=== PATIENT | male | born 1955 | race Caucasian/White ===

== ENCOUNTER → 2016-06-03 | Outpatient (CLI) | payer OTHER ==
[~2016-06-03] MED LIST: IOPAMIDOL (ISOVUE 370) 100 ML BTL IV ONE; IOPAMIDOL (ISOVUE-370) 150 ML BTL IV ONE
== END ==
LOC: CIMAGING 13:21
PROVIDERS: ATTEND Radiology Diagnostic Radiology
DX: Z09 Encounter for follow-up examination after completed treatment for conditions other than malignant neoplasm (principal); I70.1 Atherosclerosis of renal artery; I10 Essential (primary) hypertension
CPT/HCPCS: 75635-PO; Q9967

== ENCOUNTER 2016-06-09 11:01 | Inpatient (IN) | payer OTHER ==
--- NOTE | 2016-06-09 11:21 | CPEKG ---
Heart Rate: 64 RR Interval: 938 P-R Interval: 196 QRSD Interval: 120 QT Interval: 428 QTC Interval: 442 P Allen: 64 QRS Allen: -80 T Wave Allen: 34 EKG Severity - ABNORMAL ECG - EKG Impression: SINUS RHYTHM EKG Impression: NONSPECIFIC IVCD WITH LAD Electronically Signed By: Sejal Rea 09-Jun-2016 15:41:35
[2016-06-09 11:40] LABS: % IMMATURE GRANULYOCYTES 0.3 % (0.0-1.1); ABSOLUTE IMMATURE GRANULOCYTES 0.02 10^3/uL (0.00-0.10); ADD DIFF? NO; ADD MORPH? NO; ADD SCAN? NO; ATYPICAL LYMPHOCYTE FLAG 10 (0-99); FRAGMENT RBC FLAG 0 (0-99); HEMATOCRIT 48.4 % (40.0-51.0); HEMOGLOBIN 17.5 g/dL (13.7-17.5); LEFT SHIFT FLG 0 (0-99); LIPEMIA HEMOLYSIS FLAG 90 (0-99); MEAN CELL HEMOGLOBIN 31.9 pg (27.9-34.1); MEAN CELL HEMOGLOBIN CONCENTR. 36.2 g/dL (32.4-36.7); MEAN CELL VOLUME 88.3 fL (81.5-99.8); MEAN PLATELET VOLUME 10.6 fL (8.7-11.7); PLATELET CLUMPS FLAG 0 (0-99); PLATELET COUNT 127 10^3/uL (150-400); RED BLOOD CELL COUNT 5.48 10^6/uL (4.40-6.38)
[2016-06-09 11:50] LABS: ALANINE AMINOTRANSFERASE 43 IU/L (21-72); ALBUMIN 4.8 g/dL (3.5-5.0); ALKALINE PHOSPHATASE 79 IU/L (38-126); ANION GAP 14 mEq/L (8-16); ASPARTATE AMINOTRANSFERASE 26 IU/L (17-59); BILIRUBIN,TOTAL 0.7 mg/dL (0.1-1.4); BILIRUBIN-CONJUGATED 0.4 mg/dL (0.0-0.5); BILIRUBIN-UNCONJUGATED 0.3 mg/dL (0.0-1.1); CALCIUM 9.7 mg/dL (8.5-10.4); CARBON DIOXIDE 23 mEq/l (22-31); CHLORIDE 104 mEq/L (97-110); CREATININE 1.2 mg/dL (0.7-1.3); GLOMERULAR FILTRATION RATE > 60; GLUCOSE 83 mg/dL (70-100); POTASSIUM 4.2 mEq/L (3.5-5.2); SODIUM 141 mEq/L (134-144); TOTAL PROTEIN 7.5 g/dL (6.3-8.2)
[2016-06-09 12:00] LABS: INR 1.76 (0.83-1.16); PROTIME(PATIENT) 20.6 SEC (12.0-15.0)
[2016-06-09 12:01] LABS: APTT 36.3 SEC (23.0-38.0)
[2016-06-09 12:02] LABS: TROPONIN I < 0.012 ng/mL (0-0.034)
[2016-06-09] MEDS ORDERED: LABETALOL HCL 50 MG/10 ML SYR IVP ONE (12:11)
[2016-06-09] MEDS ORDERED: LABETALOL HCL 5 MG/ML 20 ML MDV ONE (12:18)
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
[2016-06-09] MEDS ORDERED: ACETAMINOPHEN 500 MG TAB ONE (12:29)
[2016-06-09] MEDS ORDERED: LABETALOL HCL 50 MG/10 ML SYR IVP PRN (14:53)
[2016-06-09] MEDS ORDERED: [UNRECOGNIZED DRUG - REMARK] MISC ONE (15:30)
[2016-06-09] MEDS: HYDROmorphONE/DILAUDID 1 MG/ML SYR IVP PRN ×3 (15:37→23:29)
[2016-06-09] MEDS ORDERED: ONDANSETRON 4 MG/2 ML VIAL IVP PRN (15:39)
[2016-06-09] MEDS ORDERED: NS 1,000 ML IV SCH (15:45)
[2016-06-09] MEDS ORDERED: ACETAMINOPHEN 500 MG TAB PO ONE (15:49)
[2016-06-09] MEDS: hydrALAZINE 10 MG TAB PO SCH ×2 (16:13→22:05)
[2016-06-09] MEDS: ACETAMINOPHEN 500 MG TAB PO PRN (16:14)
[2016-06-09] MEDS: ARGATROBAN 250 MG in NS 250 ML IV SCH (16:14)
--- NOTE | 2016-06-09 16:21 | GHP ---
[f rep st] HISTORY AND PHYSICAL DATE OF ADMISSION: 06/09/2016 CHIEF COMPLAINT: Headache. HISTORY OF PRESENT ILLNESS: The patient is a 60-year-old male who underwent an endovascular stent t o an abdominal aortic aneurysm in February. Immediately after the procedure, he developed new onset severe hypertension and recent CT angiogram showed that this endovascular stent has caused bilatera l renal artery stenosis. He did have plan for outpatient renal artery stents to be placed by Dr. Violet healy next week; however, in the meantime he has developed a severe headache and accelerated blood press ure, and he came to the emergency room. Blood pressure today was 200/125. His headache has been es calating over the last 3 days. Today it is very severe and constant, frontal, bilateral, behind his eyes, there is associated tinnitus. PAST MEDICAL HISTORY: 1. Abdominal aortic aneurysm with associated clot status post endovascular stent. 2. Recurrent left lower extremity critical limb ischemia due to clot originating at his AAA status post previous stent to the SFA and popliteal artery. 3. Lupus anticoagulant with recurrent PE and DVT. 4. HIT (heparin-induced thrombocytopenia). 5. Renal cell carcinoma status post ablation. 6. Bilateral renal artery stenosis as above. 7. Colon polyps for which repeat colonoscopy is due. MEDICATIONS: Please see computer record for full detailed list. ALLERGIES: 1. Penicillin. 2. Heparin. 3. Iodine contrast. SOCIAL HISTORY: Quit smoking 1 year ago. No alcohol for 2 years. He lives alone. 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 REVIEW OF SYSTEMS: Complete review of systems obtained. Review of systems is negative regarding co nstitutional, HEENT, GI, pulmonary, cardiovascular, , hematology, skin, muscular, endocrine, psych , except for positives as in HPI. FAMILY HISTORY: Father with liver cancer. Mother with ovarian cancer. PHYSICAL EXAMINATION: GENERAL: Well-developed, well-nourished male in no acute distress. VITAL SI GNS: Temperature is 36.6, pulse 64, blood pressure 167/90 satting 97% on room air. EYES: Normal conjunctivae. Pupils reactive to light. ENT: Normal ears and nose. Hearing intact. Normal lips and teeth. Oropharynx moist. NECK: Trachea midline. No thyromegaly. CHEST: Normal effort. JESUS GS: Clear to auscultation bilaterally. CARDIOVASCULAR: Regular rhythm. No murmur. EXTREMITIES: No lower extremity edema. ABDOMEN: Soft, nontender. No hepatosplenomegaly. SKIN: Warm, dry, in tact. No rash. MUSCULOSKELETAL: No cyanosis or clubbing. Strength 5/5 upper and lower extremitie s. NEUROLOGIC: Cranial nerves intact. Normal sensation to light touch. PSYCH: Awake, alert and oriented x3. Normal affect. Normal judgment and insight. Normal memory. LABORATORY DATA: Sodium 141, potassium 4.2, chloride 104, bicarb 23, BUN 19, creatinine 1.2, glucos e 83. LFTs are negative. BNP is 154. Troponin is negative. INR is 1.76. White blood cells, 589, hematocrit 48.4, platelets 127. IMAGING PROCEDURE: 1. Head CT is negative. 2. EKG, viewed by me. My personal interpretation is normal sinus rhythm. No ST or T-wave changes. This case was discussed extensively with Dr. Davis. He has been managing the patient very closely as an outpatient. He detailed to me all the recent medical events leading up to his arrival in the emergency room today. I have summarized all of these events above under HPI and Past Medical Histor y. ASSESSMENT AND PLAN: 1. Hypertensive urgency. This is due to bilateral renal artery stenosis as a complication of recen t endovascular stent for abdominal aortic aneurysm. For tonight we will treat with as-needed IV lab etalol and continue his outpatient oral antihypertensives. Dr. Goodson is prepared to stent the osiris l arteries tomorrow morning in Interventional Radiology. Anticipate after these renal arteries are opened up that he will have a precipitous fall in blood pressure and will need to be monitored very closely in the ICU setting regarding postprocedure blood pressure medication needs. 2. HIT (heparin-induced thrombocytopenia) with recurrent thrombosis. His INR is subtherapeutic on presentation. We will start him on IV argatroban as a bridge to procedure which can be held in the morning. We will hold warfarin but this can be reinstituted postprocedure. Could consider Arixtra for subcutaneous administration of anticoagulation while we await warfarin therapeutic levels postpr ocedure. 3. Abdominal aortic aneurysm status post endovascular stent. He did have clot associated with this AAA that was causing recurrent lower left lower extremity critical limb ischemia and so endovascula r stent was absolutely necessary. 4. Headache due to uncontrolled hypertension. He does not have any encephalopathy and is quite mario ar and oriented. His head CT is negative. 5. Renal cell carcinoma status post ablation. This was previously performed by Dr. Goodson. 6. Hypercoagulable state secondary to lupus anticoagulant. Bridging as discussed above. 7. Colon polyps. He is due for a repeat colonoscopy which can be rescheduled as an outpatient. CODE STATUS: Full. ADMISSION STATUS: 1. We will admit to inpatient as he is medically complex. Anticipate greater than 2 midnights for stabilization. 2. DVT prophylaxis. He is high risk and will be anticoagulated as discussed above. /[id number]/MODL
--- NOTE | 2016-06-09 16:51 | GCON ---
[f rep st] CONSULTATION INPATIENT HEMATOLOGY CONSULTATION DATE OF CONSULTATION: 06/09/2016 REFERRING PHYSICIAN: Katerin Luna MD REASON FOR CONSULTATION: Heparin-induced thrombocytopenia and history of DVT. HISTORY OF PRESENT ILLNESS: The patient is a 60-year-old man with a history of heparin-induced thrombocytopenia and antiphospholipid antibody syndrome. He is chronically on Coumadin as an outpatient. He has bilateral renal artery stenosis and developed severe hypertension. He is currently admitted for control of his hypertension and he is planned to have renal stent placement tomorrow. He will be an argatroban drip to bridge him for this procedure. We are asked to assist in his management. His hypercoagulable history is as follows: He had an unprovoked pulmonary embolism in 2008. Then in December 2013, he presented with a right superficial femoral arterial thrombosis treated with thrombectomy and tPA. He then developed severe thrombocytopenia and a right leg DVT. A pulmonary embolism again later developed. Testing for HIT antibodies was initially negative but then turned positive. In addition, he had a lupus anticoagulant, found though anticardiolipin antibodies and beta 2 glycoprotein antibodies were negative. He had an AAA repair in February and was bridged on argatroban without incident. His usual dose of Coumadin is 7.5 mg 3 times a week and 5 mg 4 times a week. PAST MEDICAL HISTORY: 1. Heparin-induced thrombocytopenia. 2. Antiphospholipid antibody syndrome. 3. Recurrent venous thromboembolism. 4. History of renal cell carcinoma status post cryoablation. CURRENT MEDICATIONS: Include Norvasc, argatroban, Lipitor, hydralazine, labetalol, metoprolol. ALLERGIES: He is allergic to heparin and penicillin. FAMILY HISTORY: Noncontributory. SOCIAL HISTORY: He is a nonsmoker, nondrinker. REVIEW OF SYSTEMS: Other than pertinent positives noted in the HPI, a 14-point review of systems was negative. PHYSICAL EXAMINATION: VITAL SIGNS: His temperature was 36.6, blood pressure 175/96, with heart rate 63, oxygen saturation 94% on room air. GENERAL: He was in no acute distress. HEENT: Sclerae anicteric. Oropharynx is clear. NECK: Supple without lymphadenopathy. LUNGS: Clear to auscultation bilaterally. CARDIAC: Regular rate and rhythm. No murmurs, gallops, rubs. ABDOMEN: Normoactive bowel sounds. Nontender, nondistended. EXTREMITIES: Without edema. 2+ pulses. NEUROLOGIC: He is alert and oriented x3. LABORATORY DATA: From today, CBC unremarkable aside from a mildly low platelet count of 127. Comprehensive metabolic panel is normal. INR 1.76. IMPRESSION: This is a 60-year-old man with a history of heparin-induced thrombocytopenia and thrombosis as well as antiphospholipid antibody syndrome. He has not had any recurrent thromboses since starting on Coumadin. He requires urgent renal artery stenting for refractory hypertension. RECOMMENDATIONS: 1. Continue with argatroban as you are, titrating the activated PTT to 1.5 to 3 times the upper limit of normal. 2. IV argatroban can be held an hour or so before the procedure and resumed afterward as soon as it is safe. He should then be restarted on his Coumadin. The argatroban can be discontinued when the INR is greater than 4. Thank you for this consultation. We will continue to follow the patient with you while he is in the hospital. /[id number]/MODL MTDD
[2016-06-09] MEDS: oxyCODONE IR 5 MG TAB PO PRN ×2 (17:35→21:34)
[2016-06-09] MEDS: ATORVASTATIN CALCIUM 40 MG TAB PO SCH (18:29)
[2016-06-10] MEDS: HYDROmorphONE/DILAUDID 1 MG/ML SYR IVP PRN ×2 (04:16→08:27)
[2016-06-10 05:22] LABS: % IMMATURE GRANULYOCYTES 0.3 % (0.0-1.1); ABSOLUTE IMMATURE GRANULOCYTES 0.02 10^3/uL (0.00-0.10); ADD DIFF? NO; ADD MORPH? NO; ADD SCAN? NO; ATYPICAL LYMPHOCYTE FLAG 10 (0-99); FRAGMENT RBC FLAG 0 (0-99); HEMATOCRIT 41.7 % (40.0-51.0); HEMOGLOBIN 14.9 g/dL (13.7-17.5); LEFT SHIFT FLG 0 (0-99); LIPEMIA HEMOLYSIS FLAG 90 (0-99); MEAN CELL HEMOGLOBIN 31.6 pg (27.9-34.1); MEAN CELL HEMOGLOBIN CONCENTR. 35.7 g/dL (32.4-36.7); MEAN CELL VOLUME 88.3 fL (81.5-99.8); MEAN PLATELET VOLUME 10.9 fL (8.7-11.7); PLATELET CLUMPS FLAG 20 (0-99); PLATELET COUNT 124 10^3/uL (150-400); RED BLOOD CELL COUNT 4.72 10^6/uL (4.40-6.38); RED CELL DISTRIBUTION WIDTH 13.1 % (11.5-15.2)
[2016-06-10 05:30] LABS: INR 3.25 (0.83-1.16); PROTIME(PATIENT) 33.6 SEC (12.0-15.0)
[2016-06-10 05:31] LABS: APTT 69.4 SEC (23.0-38.0)
[2016-06-10 05:42] LABS: ANION GAP 10 mEq/L (8-16); CALCIUM 8.5 mg/dL (8.5-10.4); CARBON DIOXIDE 24 mEq/l (22-31); CHLORIDE 105 mEq/L (97-110); CREATININE 1.2 mg/dL (0.7-1.3); GLOMERULAR FILTRATION RATE > 60; GLUCOSE 97 mg/dL (70-100); POTASSIUM 4.2 mEq/L (3.5-5.2); SODIUM 139 mEq/L (134-144)
[2016-06-10] MEDS: hydrALAZINE 10 MG TAB PO SCH (08:26)
[2016-06-10] MEDS ORDERED: methylPREDNISolone SOD SUCC 125 MG/2 ML VIAL ONE (11:37)
[2016-06-10] MEDS ORDERED: PROPOFOL/EMULSION 500 MG/50 ML BOTTLE IV ONE (11:41)
[2016-06-10] MEDS ORDERED: REMIFENTANIL HCL 1 MG VIAL ONE (11:41)
[2016-06-10] MEDS ORDERED: fentaNYL 250 MCG/5 ML INJ ONE (11:41)
[2016-06-10] MEDS ORDERED: ROCURONIUM 100 MG/10 ML VIAL ONE (11:44)
[2016-06-10] MEDS ORDERED: NITROGLYCERIN/D5W 50 MG/250 ML BOTTLE IV ONE (12:42)
[2016-06-10] MEDS ORDERED: IOPAMIDOL (ISOVUE-300) 100 ML BTL IV ONE (12:42)
[2016-06-10] MEDS ORDERED: MEPERIDINE 25 MG/ML SYR IVP PRN (13:02)
[2016-06-10] MEDS ORDERED: NALOXONE HCL 0.4 MG/ML INJ IVP PRN (13:02)
[2016-06-10] MEDS ORDERED: fentaNYL 100 MCG/2 ML INJ IVP PRN (13:02)
[2016-06-10] MEDS ORDERED: SUGAMMADEX SODIUM 200 MG/2 ML VIAL IVP ONE (13:24)
--- NOTE | 2016-06-10 13:29 | POSTOPPROG ---
Post Op Note Date of Operation: 06/10/16 Surgeon: Ned Goodson Anesthesiologist: Joyce Anesthesia: GET(General Endotracheal) Pre-op Diagnosis: Bilateral renal arterial stenosis Post-op Diagnosis: Same Indication: Hypertensive crisis Procedure: Stenting of both renal arteries Findings: 6mm diameter covered stents in good positions Inf/Abcess present in the surg proc area at time of surgery?: No EBL: 50-100 Complications: 0
--- NOTE | 2016-06-10 13:39 | SOAPPROG ---
[facility] Progress Note Assessment/Plan: Assessment: Good angiographic results of bilateral renal arterial stents. Plan: Close observation of BP. 06/10/16 13:33 Subjective: we discussed percutaneous renal arterial stents in detail. Mr. Siddiqi accepts risks (technical failure, internal bleeding, thrombosis, stroke, allergic reaction) and he wished to proceed today. Objective: Pulses: Radial Ulnar Brachial Carotid Femoral Popliteal PT DP LEFT 4 4 0 3 4 0 0 4 RIGHT 4 4 3 4 4 3 4 Vital Signs Temp Pulse Resp BP Pulse Ox 37.0 C 74 21 H 153/92 H 93 06/10/16 08:00 06/10/16 08:00 06/10/16 08:00 06/10/16 08:26 06/10/16 08:00 Laboratory Results 06/10/16 05:05 06/10/16 05:05 06/09/16 06/10/16 06/11/16 05:59 05:59 05:59 Intake Total 3010.1 Output Total 1025 Balance 1985.1 PT 33.6 SEC (12.0-15.0) H D 06/10/16 05:05 INR 3.25 (0.83-1.16) H 06/10/16 05:05 BILATERAL RENAL ARTERIAL COVERED STENTS OF 6mm diameter were placed via right femoral access, with good angiographic results. Starclose right groin for hemostasis ICD10 Worksheet Patient Problems: Problems Problem Status Onset Bilateral renal artery stenosis Acute Hypertensive urgency Acute Warfarin-induced coagulopathy Acute HIT (heparin-induced thrombocytopenia) Acute
[2016-06-10] MEDS ORDERED: hydrALAZINE 10 MG TAB PO PRN (14:06)
[2016-06-10 14:21] LABS: INR 1.58 (0.83-1.16); PROTIME(PATIENT) 18.9 SEC (12.0-15.0)
--- NOTE | 2016-06-10 14:35 | HOSPPROG ---
Hospitalist Progress Note Assessment/Plan: * HTN urgency due to bilateral renal artery stenosis -s/p bilateral stenting -watch BP closely - anticipate it will drop -change hydralazine to prn -IV labetalol prn * AAA s/p endovascular stent - complicated by MICHAEL due to stent -as above * Lupus anticoagulant with recurrent DVT/PE -high risk - bridging anticoagulation until INR therapeutic * HIT -if INR low - restart argatroban -consider Arixtra SubQ if bridging needed post discharge * LLE limb ischemic s/p multiple stents * RCC s/p ablation * Colon polyp -reschedule colonoscopy as outpatient * Headache -IV Dilaudid - hopefully should improve post procedure Subjective: no complaints, seen immediately post procedure Objective: Vital Signs Temp Pulse Resp BP Pulse Ox 37.0 C 74 21 H 153/92 H 93 06/10/16 08:00 06/10/16 08:00 06/10/16 08:00 06/10/16 08:26 06/10/16 08:00 Laboratory Results 06/10/16 05:05 06/10/16 05:05 06/09/16 06/10/16 06/11/16 05:59 05:59 05:59 Intake Total 3010.1 Output Total 1025 Balance 1985.1 PT 18.9 SEC (12.0-15.0) H D 06/10/16 14:00 INR 1.58 (0.83-1.16) H 06/10/16 14:00 - Physical Exam Constitutional: no apparent distress, appears nourished, not in pain Cardiovascular: regular rate and rhythym, no murmur, rub, or gallop Respiratory: no respiratory distress, no rales or rhonchi, clear to auscultation Gastrointestinal: normoactive bowel sounds, soft, non-tender abdomen, no palpable masses Skin: no rashes or abrasions, no fluctuance, no induration Neurologic: AAOx3, sensation intact bilaterally Psychiatric: interacting appropriately, not anxious, not encephalopathic, thought process linear ICD10 Worksheet Patient Problems: Problems Problem Status Onset Bilateral renal artery stenosis Acute Hypertensive urgency Acute Warfarin-induced coagulopathy Acute HIT (heparin-induced thrombocytopenia) Acute
[2016-06-10 15:14] LABS: APTT 35.4 SEC (23.0-38.0)
--- NOTE | 2016-06-10 17:37 | SOAPPROG ---
[facility] Progress Note Assessment/Plan: Assessment: No evidence of procedural complication. Plan: 1. Resume warfarin today. 2. Close observation of BP. 3. Home tomorrow. 06/10/16 13:33 06/10/16 17:34 06/10/16 17:37 Subjective: "I feel great". Headache gone. Tinnitus on right. Relieved by good results of procedure. Objective: Right groin dry; no hematoma. Right leg pulses are intact. Vital Signs Temp Pulse Resp BP Pulse Ox 37.0 C 76 16 157/85 H 93 06/10/16 16:22 06/10/16 16:22 06/10/16 16:22 06/10/16 16:22 06/10/16 16:22 Laboratory Results 06/10/16 05:05 06/10/16 05:05 06/09/16 06/10/16 06/11/16 05:59 05:59 05:59 Intake Total 3010.1 Output Total 1025 550 Balance 1985.1 -550 PT 18.9 SEC (12.0-15.0) H D 06/10/16 14:00 INR 1.58 (0.83-1.16) H 06/10/16 14:00 ICD10 Worksheet Patient Problems: Problems Problem Status Onset Bilateral renal artery stenosis Acute Hypertensive urgency Acute Warfarin-induced coagulopathy Acute HIT (heparin-induced thrombocytopenia) Acute
[2016-06-10] MEDS ORDERED: WARFARIN SODIUM 5 MG TAB PO SCH (20:00)
[2016-06-11 04:28] LABS: % IMMATURE GRANULYOCYTES 0.4 % (0.0-1.1); ABSOLUTE IMMATURE GRANULOCYTES 0.03 10^3/uL (0.00-0.10); ADD DIFF? NO; ADD MORPH? NO; ADD SCAN? NO; ATYPICAL LYMPHOCYTE FLAG 0 (0-99); FRAGMENT RBC FLAG 0 (0-99); HEMATOCRIT 43.4 % (40.0-51.0); HEMOGLOBIN 15.3 g/dL (13.7-17.5); LEFT SHIFT FLG 0 (0-99); LIPEMIA HEMOLYSIS FLAG 90 (0-99); MEAN CELL HEMOGLOBIN 31.7 pg (27.9-34.1); MEAN CELL HEMOGLOBIN CONCENTR. 35.3 g/dL (32.4-36.7); MEAN PLATELET VOLUME 10.5 fL (8.7-11.7); PLATELET CLUMPS FLAG 10 (0-99); PLATELET COUNT 136 10^3/uL (150-400); RED BLOOD CELL COUNT 4.82 10^6/uL (4.40-6.38)
[2016-06-11 04:46] LABS: INR 4.12 (0.83-1.16); PROTIME(PATIENT) 40.7 SEC (12.0-15.0)
[2016-06-11 04:47] LABS: ANION GAP 11 mEq/L (8-16); APTT 77.6 SEC (23.0-38.0); CALCIUM 9.1 mg/dL (8.5-10.4); CARBON DIOXIDE 19 mEq/l (22-31); CHLORIDE 110 mEq/L (97-110); GLOMERULAR FILTRATION RATE > 60; GLUCOSE 135 mg/dL (70-100); POTASSIUM 4.5 mEq/L (3.5-5.2); SODIUM 140 mEq/L (134-144)
[2016-06-11] MEDS: oxyCODONE IR 5 MG TAB PO PRN ×5 (06:13→22:04)
[2016-06-11] MEDS: ACETAMINOPHEN 500 MG TAB PO PRN ×3 (08:14→22:06)
[2016-06-11 08:28] LABS: INR 1.54 (0.83-1.16); PROTIME(PATIENT) 18.5 SEC (12.0-15.0)
[2016-06-11 08:29] LABS: APTT 35.3 SEC (23.0-38.0)
[2016-06-11] MEDS: METOPROLOL SUCCINATE XR 25 MG TAB PO SCH (10:57)
[2016-06-11] MEDS ORDERED: BISACODYL 10 MG SUPP PR PRN (11:41)
[2016-06-11] MEDS ORDERED: MAGNESIUM HYDROXIDE 30 ML UDCUP PO PRN (11:41)
[2016-06-11] MEDS ORDERED: LACTULOSE 20 GM/30 ML UDCUP PO PRN (11:41)
[2016-06-11] MEDS ORDERED: SENNOSIDES/DOCUSATE SODIUM TAB PO SCH (12:00)
[2016-06-11 15:17] LABS: INR 2.53 (0.83-1.16); PROTIME(PATIENT) 27.5 SEC (12.0-15.0)
[2016-06-11 15:18] LABS: APTT 59.3 SEC (23.0-38.0)
--- NOTE | 2016-06-11 15:35 | HOSPPROG ---
Hospitalist Progress Note Assessment/Plan: * HTN urgency due to bilateral renal artery stenosis -s/p bilateral stenting -BP drop post stent - reduce BP meds * AAA s/p endovascular stent - complicated by MICHAEL due to stent -as above * Lupus anticoagulant with recurrent DVT/PE -high risk - bridging anticoagulation until INR therapeutic * HIT -argatroban until INR therapeutic -consider Arixtra SubQ if bridging needed post discharge -hematology follow * LLE limb ischemic s/p multiple stents * RCC s/p ablation * Colon polyp -reschedule colonoscopy as outpatient * Headache - suspect migraine due to shifting BP Subjective: c/o persistent MOLINA - very light sensitive Objective: Vital Signs Temp Pulse Resp BP Pulse Ox 36.6 C 75 18 160/91 H 93 06/11/16 13:22 06/11/16 13:22 06/11/16 13:22 06/11/16 13:22 06/11/16 13:22 Laboratory Results 06/11/16 04:00 06/11/16 04:00 06/10/16 06/11/16 06/12/16 05:59 05:59 05:59 Intake Total 3010.1 1037 Output Total 1025 2950 325 Balance 1985.1 -1913 -325 PT 27.5 SEC (12.0-15.0) H D 06/11/16 14:55 INR 2.53 (0.83-1.16) H 06/11/16 14:55 d/w Nick Mathews MD ICU rounds - okay for transfer to floor Tele reviewed - NSR - Physical Exam Constitutional: no apparent distress, appears nourished, not in pain Cardiovascular: regular rate and rhythym, no murmur, rub, or gallop Respiratory: no respiratory distress, no rales or rhonchi, clear to auscultation Gastrointestinal: normoactive bowel sounds, soft, non-tender abdomen, no palpable masses Skin: no rashes or abrasions, no fluctuance, no induration Musculoskeletal: full muscle strength, no muscle tenderness, normal joint ROM Neurologic: AAOx3, sensation intact bilaterally ICD10 Worksheet Patient Problems: Problems Problem Status Onset Bilateral renal artery stenosis Acute Hypertensive urgency Acute Warfarin-induced coagulopathy Acute HIT (heparin-induced thrombocytopenia) Acute
[2016-06-11] MEDS: WARFARIN SODIUM 7.5 MG TAB PO SCH (20:14)
[2016-06-11] MEDS: ATORVASTATIN CALCIUM 40 MG TAB PO SCH (20:14)
[2016-06-11 20:28] LABS: INR 2.85 (0.83-1.16); PROTIME(PATIENT) 30.3 SEC (12.0-15.0)
[2016-06-11] MEDS: POLYETHYLENE GLYCOL 3350 17 GM PKT PO PRN (21:05)
[2016-06-12] MEDS: oxyCODONE IR 5 MG TAB PO PRN ×4 (03:42→21:57)
[2016-06-12 05:05] LABS: % IMMATURE GRANULYOCYTES 0.4 % (0.0-1.1); ABSOLUTE IMMATURE GRANULOCYTES 0.03 10^3/uL (0.00-0.10); ADD DIFF? NO; ADD MORPH? NO; ADD SCAN? NO; ATYPICAL LYMPHOCYTE FLAG 0 (0-99); FRAGMENT RBC FLAG 0 (0-99); HEMATOCRIT 41.4 % (40.0-51.0); HEMOGLOBIN 14.5 g/dL (13.7-17.5); LEFT SHIFT FLG 0 (0-99); LIPEMIA HEMOLYSIS FLAG 90 (0-99); MEAN CELL HEMOGLOBIN 32.2 pg (27.9-34.1); MEAN CELL VOLUME 91.8 fL (81.5-99.8); MEAN PLATELET VOLUME 10.4 fL (8.7-11.7); PLATELET CLUMPS FLAG 10 (0-99); PLATELET COUNT 112 10^3/uL (150-400); RED BLOOD CELL COUNT 4.51 10^6/uL (4.40-6.38); RED CELL DISTRIBUTION WIDTH 13.4 % (11.5-15.2)
[2016-06-12 05:13] LABS: INR 3.19 (0.83-1.16); PROTIME(PATIENT) 33.1 SEC (12.0-15.0)
[2016-06-12 05:14] LABS: APTT 63.7 SEC (23.0-38.0)
[2016-06-12] MEDS: METOPROLOL SUCCINATE XR 25 MG TAB PO SCH (08:57)
[2016-06-12] MEDS: ACETAMINOPHEN 500 MG TAB PO PRN ×2 (09:18→20:16)
[2016-06-12] MEDS: POLYETHYLENE GLYCOL 3350 17 GM PKT PO PRN (09:18)
--- NOTE | 2016-06-12 10:38 | SOAPPROG ---
SORADHA Progress Note Assessment/Plan: Assessment: 1.) Anticoagulation management on Argatroban infusion, as bridge for warfarin Tx. 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 of Renal Cell Carcinoma, S/P Ablation, without known recurrence. 5.) Accelerated HTN, requiring Renal Artery Stenting 6.) Headache of uncertain etiology 7.) Mild Thrombocytopenia Plan: 1.) Continue Argatraban infusion until INR is at least 4.0, and continue warfarin management. When Argatroban discontinued, check INR 1-2 hours later. 2.) Agree with MRI head to evaluate for etiology of MOLINA 3.) Follow CBC and Coags/BMP 4.) Pt has outpatient management of hx. of Renal Cell Carcinoma with Dr. Portia Bui in our practice. 5.) We will follow. 06/12/16 10:33 Subjective: Having headache, not typically migraine like. No bleeding and no new ischemic sx. No N/V or hiccups Objective: BP has remained stable, and VSS,afebrile HEENT- no facial assymetry, anicteric, no oral lesions Neck- supple Chest clear CVS- RSR, no extra HS ABD-soft, NT, no mass or HSM, BS+, nondistended EXT- no edema Labs as noted here: INR is 3.19, PLT 112, prior result was 136. BUN/CR 18/1.0 Vital Signs Temp Pulse Resp BP Pulse Ox 36.7 C 67 16 128/84 H 93 06/12/16 08:00 06/12/16 08:57 06/12/16 08:00 06/12/16 08:57 06/12/16 08:00 Laboratory Results 06/12/16 04:36 06/11/16 04:00 06/11/16 06/12/16 06/13/16 05:59 05:59 05:59 Intake Total 1037 1900 345 Output Total 2950 2460 400 Balance -1913 -560 -55 PT 33.1 SEC (12.0-15.0) H 06/12/16 04:36 INR 3.19 (0.83-1.16) H 06/12/16 04:36 ICD10 Worksheet Patient Problems: Problems Problem Status Onset Bilateral renal artery stenosis Acute Hypertensive urgency Acute Warfarin-induced coagulopathy Acute HIT (heparin-induced thrombocytopenia) Acute
[2016-06-12] MEDS ORDERED: SUMAtriptan 25 MG TAB PO PRN (12:51)
--- NOTE | 2016-06-12 12:56 | HOSPPROG ---
Hospitalist Progress Note Assessment/Plan: * HTN urgency due to bilateral renal artery stenosis -s/p bilateral stenting -BP drop post stents - hydralazine discontinued * AAA s/p endovascular stent - complicated by MICHAEL due to stent -as above * Lupus anticoagulant with recurrent DVT/PE -high risk - bridging anticoagulation until INR therapeutic * HIT -argatroban until INR > 4 -recheck INR 2-4 hours after argatroban stopped * LLE limb ischemic s/p multiple stents * RCC s/p ablation * Colon polyp -reschedule colonoscopy as outpatient * Headache - suspect migraine due to shifting BP Subjective: Headache continues, very light sensitive Objective: Vital Signs Temp Pulse Resp BP Pulse Ox 36.7 C 67 16 128/84 H 93 06/12/16 08:00 06/12/16 08:57 06/12/16 08:00 06/12/16 08:57 06/12/16 08:00 Laboratory Results 06/12/16 04:36 06/11/16 04:00 06/11/16 06/12/16 06/13/16 05:59 05:59 05:59 Intake Total 1037 1900 345 Output Total 2950 2460 400 Balance -1913 -560 -55 PT 33.1 SEC (12.0-15.0) H 06/12/16 04:36 INR 3.19 (0.83-1.16) H 06/12/16 04:[address] - negative case d/w Dr. Rmoero - hematology will see today - Physical Exam Constitutional: no apparent distress, appears nourished, not in pain Cardiovascular: regular rate and rhythym, no murmur, rub, or gallop Respiratory: no respiratory distress, no rales or rhonchi, clear to auscultation Gastrointestinal: normoactive bowel sounds, soft, non-tender abdomen, no palpable masses Skin: no rashes or abrasions, no fluctuance, no induration, other (petichiae bilaterally below eyes) Neurologic: AAOx3, sensation intact bilaterally Psychiatric: interacting appropriately, not anxious, not encephalopathic, thought process linear ICD10 Worksheet Patient Problems: Problems Problem Status Onset Bilateral renal artery stenosis Acute Hypertensive urgency Acute Warfarin-induced coagulopathy Acute HIT (heparin-induced thrombocytopenia) Acute
[2016-06-12 17:05] LABS: INR 3.23 (0.83-1.16); PROTIME(PATIENT) 33.5 SEC (12.0-15.0)
[2016-06-12 17:07] LABS: APTT 68.3 SEC (23.0-38.0)
[2016-06-12] MEDS: ARGATROBAN 250 MG in NS 250 ML IV SCH (17:23)
[2016-06-12] MEDS ORDERED: WARFARIN SODIUM 5 MG TAB PO ONE ×2 (18:00→20:30)
[2016-06-12] MEDS: ATORVASTATIN CALCIUM 40 MG TAB PO SCH (19:25)
[2016-06-12] MEDS: WARFARIN SODIUM 7.5 MG TAB PO SCH (21:38)
[2016-06-13 05:02] LABS: % IMMATURE GRANULYOCYTES 0.4 % (0.0-1.1); ABSOLUTE IMMATURE GRANULOCYTES 0.02 10^3/uL (0.00-0.10); ADD DIFF? NO; ADD MORPH? NO; ADD SCAN? NO; ATYPICAL LYMPHOCYTE FLAG 10 (0-99); FRAGMENT RBC FLAG 0 (0-99); HEMATOCRIT 43.1 % (40.0-51.0); HEMOGLOBIN 15.1 g/dL (13.7-17.5); LEFT SHIFT FLG 0 (0-99); LIPEMIA HEMOLYSIS FLAG 90 (0-99); MEAN CELL HEMOGLOBIN 31.5 pg (27.9-34.1); MEAN CELL VOLUME 89.8 fL (81.5-99.8); MEAN PLATELET VOLUME 10.8 fL (8.7-11.7); PLATELET CLUMPS FLAG 20 (0-99); PLATELET COUNT 121 10^3/uL (150-400); RED CELL DISTRIBUTION WIDTH 13.2 % (11.5-15.2)
[2016-06-13 05:36] LABS: INR 3.82 (0.83-1.16); PROTIME(PATIENT) 38.3 SEC (12.0-15.0)
[2016-06-13 05:58] LABS: APTT 75.9 SEC (23.0-38.0)
[2016-06-13 06:11] LABS: ANION GAP 8 mEq/L (8-16); CALCIUM 8.9 mg/dL (8.5-10.4); CARBON DIOXIDE 25 mEq/l (22-31); CHLORIDE 108 mEq/L (97-110); CREATININE 1.1 mg/dL (0.7-1.3); GLOMERULAR FILTRATION RATE > 60; GLUCOSE 78 mg/dL (70-100); SODIUM 141 mEq/L (134-144)
[2016-06-13] MEDS: ACETAMINOPHEN 500 MG TAB PO PRN ×2 (08:13→20:07)
[2016-06-13] MEDS: METOPROLOL SUCCINATE XR 25 MG TAB PO SCH (08:25)
[2016-06-13] MEDS ORDERED: PROMETHAZINE HCL 25 MG TAB PO ONE (10:47)
[2016-06-13] MEDS ORDERED: ACET/CAFFEINE/BUTA FIORICET 1 EACH TAB PO PRN (10:48)
--- NOTE | 2016-06-13 11:44 | SOAPPROG ---
SORADHA Progress Note Assessment/Plan: Assessment/Plan: 60 Y M known to our service from exposure and closure of femoral a.'s for stent graft repair of AAA in Feb 2016. Admitted with MOLINA and hypertensive crisis, 2/2 renal artery stenosis. Now s/p renal artery stents with IR. On argatroban, goal INR >4. No major changes from our service. Awaiting goal INR>4. Hematology and medicine following. S: MOLINA present but better. Large BM. O: alert nad heent: mmm, ncat chest: ctab cor RRR abd soft, nt, no bruits ext: 2+ dp pulses groin wounds intact 06/13/16 11:41 Objective: Vital Signs Temp Pulse Resp BP Pulse Ox 36.6 C 79 16 129/84 H 97 06/13/16 07:54 06/13/16 08:25 06/13/16 07:54 06/13/16 08:25 06/13/16 07:54 Laboratory Results 06/13/16 04:41 06/13/16 04:41 06/12/16 06/13/16 06/14/16 05:59 05:59 05:59 Intake Total 1900 3025.5 Output Total 2460 3350 Balance -560 -324.5 PT 38.3 SEC (12.0-15.0) H 06/13/16 04:41 INR 3.82 (0.83-1.16) H 06/13/16 04:41 ICD10 Worksheet Patient Problems: Problems Problem Status Onset Bilateral renal artery stenosis Acute Hypertensive urgency Acute Warfarin-induced coagulopathy Acute HIT (heparin-induced thrombocytopenia) Acute
--- NOTE | 2016-06-13 14:37 | SOAPPROG ---
SOAP Progress Note Assessment/Plan: E&M for APLS * APLS and Anticoagulation management on Argatroban infusion, as bridge for warfarin: continue argatroban and warfarin at 10mg daily. Suspect able to go home tomorrow. 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 of Renal Cell Carcinoma, S/P Ablation, without known recurrence. * Accelerated HTN, required Renal Artery Stenting: feeling better and BP under better control * Headache of uncertain etiology: Head CT negative * Mild Thrombocytopenia: stable to improved. Subjective: Headache but no other neurological complaints. Denies bleeding or chest pain. Objective: Vital Signs Temp Pulse Resp BP Pulse Ox 36.5 C 75 16 122/81 H 96 06/13/16 12:00 06/13/16 12:00 06/13/16 12:00 06/13/16 12:00 06/13/16 12:00 Laboratory Results 06/13/16 04:41 06/13/16 04:41 06/12/16 06/13/16 06/14/16 05:59 05:59 05:59 Intake Total 1900 3025.5 Output Total 2460 3350 Balance -560 -324.5 PT 38.3 SEC (12.0-15.0) H 06/13/16 04:41 INR 3.82 (0.83-1.16) H 06/13/16 04:41 Physical Exam - Physical Exam General Appearance: no apparent distress Respiratory: lungs clear Cardiac/Chest: regular rate, rhythm ICD10 Worksheet Patient Problems: Problems Problem Status Onset Bilateral renal artery stenosis Acute Hypertensive urgency Acute Warfarin-induced coagulopathy Acute HIT (heparin-induced thrombocytopenia) Acute
--- NOTE | 2016-06-13 15:39 | HOSPPROG ---
Hospitalist Progress Note Assessment/Plan: # HTN urgency due to bilateral renal artery stenosis -s/p bilateral stenting - BP drop post stents oxygen saturations 96% on RA - hydralazine discontinued - continue metoprolol and amlodipine # AAA s/p endovascular stent - complicated by MICHAEL due to stent -as above # Lupus anticoagulant with recurrent DVT/PE -high risk - bridging anticoagulation until INR therapeutic * HIT -argatroban until INR > 4 -recheck INR 2-4 hours after argatroban stopped - INR 3.8 this am continue argatroban overnight - receck INR in am # LLE limb ischemic s/p multiple stents- improved # RCC s/p ablation # Colon polyp -reschedule colonoscopy as outpatient # Headache - suspect migraine from features - pt not interested in imitrex or other meds CT head (personally reviewed and interpreted) no acute bleeds - cont prn tylenol and narcotics # proph - argatroban # diet - regular # dispo - expect tomorrow if INR > 4 I have discussed the case with Oncology patient will remain on Argatroban gtt today Subjective: headache Objective: Vital Signs Temp Pulse Resp BP Pulse Ox 36.5 C 75 16 122/81 H 96 06/13/16 12:00 06/13/16 12:00 06/13/16 12:00 06/13/16 12:00 06/13/16 12:00 Laboratory Results 06/13/16 04:41 06/13/16 04:41 06/12/16 06/13/16 06/14/16 05:59 05:59 05:59 Intake Total 1900 3025.5 Output Total 2460 3350 Balance -560 -324.5 PT 38.3 SEC (12.0-15.0) H 06/13/16 04:41 INR 3.82 (0.83-1.16) H 06/13/16 04:41 - Physical Exam Constitutional: appears nourished Eyes: anicteric sclera Ears, Nose, Mouth, Throat: moist mucous membranes Cardiovascular: regular rate and rhythym Respiratory: no respiratory distress, no rales or rhonchi Gastrointestinal: normoactive bowel sounds, soft, non-tender abdomen Genitourinary: no bladder fullness Skin: warm, normal color Musculoskeletal: No asymmetric calves Neurologic: AAOx3 Psychiatric: interacting appropriately Lymph, Heme, Immunologic: no cervical LAD ICD10 Worksheet Patient Problems: Problems Problem Status Onset Bilateral renal artery stenosis Acute Hypertensive urgency Acute Warfarin-induced coagulopathy Acute HIT (heparin-induced thrombocytopenia) Acute
[2016-06-13] MEDS ORDERED: WARFARIN SODIUM 5 MG TAB PO SCH (16:00)
[2016-06-13 17:33] LABS: INR 4.38 (0.83-1.16); PROTIME(PATIENT) 42.7 SEC (12.0-15.0)
[2016-06-13 17:34] LABS: APTT 82.3 SEC (23.0-38.0)
[2016-06-13] MEDS: ATORVASTATIN CALCIUM 40 MG TAB PO SCH (19:51)
[2016-06-13] MEDS: POLYETHYLENE GLYCOL 3350 17 GM PKT PO PRN (20:08)
[2016-06-13 22:12] LABS: INR 2.68 (0.83-1.16); PROTIME(PATIENT) 28.8 SEC (12.0-15.0)
[2016-06-13 22:13] LABS: APTT 45.9 SEC (23.0-38.0)
[2016-06-13 23:34] VITALS: RESP 16
[2016-06-14 00:58] LABS: INR 2.48 (0.83-1.16); PROTIME(PATIENT) 27.1 SEC (12.0-15.0)
[2016-06-14 00:59] LABS: APTT 40.7 SEC (23.0-38.0)
[2016-06-14] MEDS ORDERED: ARGATROBAN 250 MG in NS 250 ML IV SCH (01:30)
[2016-06-14] MEDS: METOPROLOL SUCCINATE XR 25 MG TAB PO SCH (07:51)
[2016-06-14] MEDS: ACETAMINOPHEN 500 MG TAB PO PRN (07:52)
[2016-06-14 09:05] VITALS: BP 120/85; PULSE 89; TEMP 97.3; O2SAT 95
--- NOTE | 2016-06-14 17:39 | GDS ---
[f rep st] DISCHARGE SUMMARY DISCHARGE DIAGNOSES: Include: 1. Hypertensive urgency, secondary to bilateral renal artery stenosis, status post bilateral stenti ng. 2. Abdominal aortic aneurysm, status post endovascular stenting. 3. Lupus anticoagulant, with recurrent deep vein thrombosis, pulmonary embolism, on chronic anticoa gulation. 4. 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 5. Left lower extremity limb ischemia, status post stenting. 6. Renal cell carcinoma, status post ablation. 7. Headache thought secondary to hypertensive urgency. HISTORY OF PRESENT ILLNESS: This is a 60-year-old male who presents on 06/09/2016 with complaints o f headache. For details of the patient's initial presentation, please see the history and physical dated 06/09/2016. CONSULTATIVE SERVICES: Include: 1. Hematology/Oncology. 2. Interventional Radiology. 3. General Surgery. PROCEDURES: 1. On 06/10/2016, the patient underwent aspiration thrombectomy of right renal artery and stenting of bilateral renal arteries. 2. On 06/12/2016, the patient had a noncontrast CT of the head that confirmed no intracranial hemor rhage or swelling. HOSPITAL COURSE: By issue: 1. Hypertensive urgency. The patient was identified having bilateral renal artery stenosis. Was t aken for thrombectomy and bilateral renal artery stenting. He had marked improvement in his blood p ressures post procedure, and is being discharged with normal blood pressures on low-dose metoprolol and amlodipine. 2. History of AAA, status post endovascular stenting. The patient was seen by Surgery, has remaine d stable. 3. Lupus anticoagulant, with recurrent DVT/PE. Patient did require bridging anticoagulation, which prolonged his stay, as argatroban requires the discontinuation of the bridge after full-dose Coumad in is present. The patient was discharged with an INR off argatroban of 2.8. 4. Headache, intermittent, thought secondary to hypertensive urgency. The patient was able to cont rol his pain with low-dose narcotic and Tylenol alone. He was headache-free on the day disposition. DISCHARGE MEDICATIONS: Please reference med reconciliation printed on 06/14/2016. FOLLOWUP APPOINTMENTS: Include: 1. With Dr. Henderson, outpatient, for long-term monitoring of his AAA stenting. 2. With Hematology/Oncology for long-term management of his antiphospholipid antibody syndrome, and history of HIT and renal cell carcinoma. 3. With his primary care provider for long-term management of his medical comorbidities. PENDING STUDIES: At the time of this dictation are none. TIME SPENT: I spent greater than 30 minutes in the planning and coordination of this discharge. /[id number]/MODL
--- NOTE | 2016-07-03 17:11 | GCON ---
[f rep st] CONSULTATION DATE OF CONSULTATION: 06/09/2016 CHIEF COMPLAINT: We have been asked by Dr. Luna to evaluate this patient with hypertensive urgency and peripheral vascular disease. HISTORY OF PRESENT ILLNESS: The patient is a 60-year-old gentleman with a longstanding history of h ypertension, who was admitted on 06/09/2016 with a hypertensive urgency. The patient has a long his tory of hypertension and was previously managed with low-dose metoprolol and amlodipine. Approximat riccardo 1 to 2 months prior to admission, the patient noted a fairly abrupt increase in his blood pressu re. His medications were up titrated and he was started on hydralazine. In addition, the patient w as scheduled for a CT angiogram to evaluate for renal artery stenosis. CT angiogram was notable for severe bilateral renal artery stenosis. The patient was to have a peripheral intervention with Dr. Ruiz next week; however, his blood pressure became difficult to control and he began to have symptom s of headache, prompting him to seek further evaluation. We have been consulted to help in the furt her management of this patient. PAST MEDICAL HISTORY: 1. Abdominal aortic aneurysm, status post endovascular stent placement in February of 2016. 2. Peripheral vascular disease, status post intervention of his left superficial femoral artery and popliteal artery in 2013 and intervention of his left posterior tibial artery in 2014. The etiolog y of his peripheral vascular disease is felt to be embolic from his abdominal aortic aneurysm. 3. Lupus anticoagulant with recurrent PE and DVT. 4. History of heparin-induced thrombocytopenia. 5. Renal cell carcinoma, status post ablation. 6. Colon polyps. MEDICATIONS: Please see medicine reconciliation form. ALLERGIES: 1. Penicillin. 2. Heparin. 3. Iodinated contrast. SOCIAL HISTORY: The patient quit smoking 1 year ago. He has not used alcohol for 2 years. He live s alone. 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 REVIEW OF SYSTEMS: 10-point review of systems is negative except as noted in HPI. FAMILY HISTORY: Notable for a father with liver cancer and a mother with ovarian cancer. PHYSICAL EXAMINATION: GENERAL: The patient is resting comfortably in bed. He does not appear to b e in acute distress. VITAL SIGNS: Temperature afebrile. Pulse is 64, blood pressure 167/90, SaO2 is 97% on room air. HEENT: Normocephalic, atraumatic. Extraocular muscles intact. NECK: No JVD. No bruits. LUNGS: Clear to auscultation bilaterally. CARDIOVASCULAR: Regular rate and rhythm, S1 and S2. No murmurs, rubs, or gallops. ABDOMEN: Soft, nontender. Normoactive bowel sounds. No hepatosplenomegaly noted. Positive bruit. EXTREMITIES: Left lower extremity edema. NEUROLOGIC: The patient is awake, alert, and oriented x3. SKIN: Evidence of bluish discoloration over the lef t dorsum of his foot. LABORATORY: Sodium 141, potassium 4.2, chloride 104, CO2 23, BUN 19, creatinine 1.2. BNP 154. Tro ponin within normal limits. INR 1.76. Hematocrit 48.4. ASSESSMENT AND PLAN: The patient is a 60-year-old gentleman with a complex medical history includin g abdominal aortic aneurysm, peripheral vascular disease, hypercoagulable state and heparin-induced thrombocytopenia, who presents with recent onset of difficult to control hypertension. CT angiogram is notable for bilateral renal artery stenosis just proximal to the origin of the aortic stent gael t. The patient was scheduled to have peripheral intervention with Dr. Ruiz next week; however, secon silvino to recent increase in blood pressure and symptoms concerning for hypertensive urgency, the lena ent was admitted more urgently for further evaluation. He will be scheduled to have peripheral inte rvention with Dr. Ned Goodson. Much of this 50-minute visit was spent coordinating care with Dr. Portia Bui, Dr. Ruiz, Dr. Petit, Dr. Goodson and Dr. Luna. /[id number]/MODL
== END 2016-06-14 10:36 | disposition home or self-care (01) | DRG 271 ==
LOC: F2N 14:10 → F1N 06-11 13:04
PROVIDERS: ADMIT Internal Medicine; ATTEND Internal Medicine
PROC: B4181ZZ Fluoroscopy of Bilateral Renal Arteries using Low Osmolar Contrast (ICD-10-PCS; principal; 2016-06-10)
PROC: 047A3DZ Dilation of Left Renal Artery with Intraluminal Device, Percutaneous Approach (ICD-10-PCS; principal; 2016-06-10)
PROC: 04793DZ Dilation of Right Renal Artery with Intraluminal Device, Percutaneous Approach (ICD-10-PCS; principal; 2016-06-10)
PROC: 04C Lower Arteries, Extirpation (ICD-10-PCS; principal; 2016-06-10)
PROC: B4101ZZ Fluoroscopy of Abdominal Aorta using Low Osmolar Contrast (ICD-10-PCS; principal; 2016-06-10)
PROC: 30233K1 Transfusion of Nonautologous Frozen Plasma into Peripheral Vein, Percutaneous Approach (ICD-10-PCS; 2016-06-10)
DX: T82.398A Other mechanical complication of other vascular grafts, initial encounter (principal); I77.1 Stricture of artery; I15.0 Renovascular hypertension; I16.0 Hypertensive urgency; T82.868A Thrombosis due to vascular prosthetic devices, implants and grafts, initial encounter; D68.62 Lupus anticoagulant syndrome; Z86.711 Personal history of pulmonary embolism; Z86.718 Personal history of other venous thrombosis and embolism; Z79.01 Long term (current) use of anticoagulants; Z95.820 Peripheral vascular angioplasty status with implants and grafts; Z85.528 Personal history of other malignant neoplasm of kidney; Z87.891 Personal history of nicotine dependence
CPT/HCPCS: 96374; C1757; C1760; C1769; C1874; C1887; C1892; C1894; J0883; J1170; J1200; J2405; J2704; J3010; J3490; P9017; Q9967

== ENCOUNTER → 2016-06-24 | Outpatient (CLI) | payer OTHER | LOC: FIMAGING 15:37 | PROVIDERS: ATTEND Radiology Diagnostic Radiology | DX: Z86.79 Personal history of other diseases of the circulatory system (principal); Z09 Encounter for follow-up examination after completed treatment for conditions other than malignant neoplasm ==

== ENCOUNTER → 2016-07-19 | Outpatient (CLI) | payer OTHER | LOC: FIMAGING 14:25 | PROVIDERS: ATTEND Family Medicine | DX: R04.2 Hemoptysis (principal); R50.9 Fever, unspecified; R91.8 Other nonspecific abnormal finding of lung field ==

== ENCOUNTER → 2017-08-28 | Outpatient (CLI) | payer OTHER ==
[~2017-08-28] MED LIST changes: -IOPAMIDOL (ISOVUE-370) 150 ML BTL IV ONE
== END ==
LOC: FIMAGING 12:57
PROVIDERS: ATTEND Internal Medicine Hematology & Oncology
DX: C64.1 Malignant neoplasm of right kidney, except renal pelvis (principal); I71.4 Abdominal aortic aneurysm, without rupture
CPT/HCPCS: Q9967

== ENCOUNTER → 2018-08-06 | Outpatient (CLI) | payer OTHER | LOC: FIMAGING 14:41 ==